=== PATIENT | female | born 1985 | race Caucasian/White ===

== ENCOUNTER 2018-09-04 13:40 | Inpatient (IN) | payer BC ==
[~2018-09-04] VITALS: Ht 185.4 cm; Wt 0.0 kg
[~2018-09-04 13:40] MED LIST: ACEBUTCAFT PO; APRI1 EACH PO; AZIT250 PO; BC PILLS; BCP'S; CEPH500 PO; CETI10 PO; CLIN300 PO; CLOB.05TO TOP; CRUTCH4 USE; CYCL10 PO; ERGO400 PO; FLUC150A PO; HYDACE10B PO; HYDACE5 PO; IBUP800; KETO10 PO; KETO15TC TOP; NAPR500 PO; NITR100CA; OTC ALLERGY MEDS PRN; OXYACE5T PO; POLY500; PROACE100; PROACE100 PO; PROM25 PO; RXOXYACE PO; TERB250 PO; TOPI25 PO; [UNRECOGNIZED DRUG - OTHER]; [UNRECOGNIZED DRUG - OTHER]; [UNRECOGNIZED DRUG - OTHER]; [UNRECOGNIZED DRUG - REMARK]
[2018-09-07 11:41] LABS: BASOPHILS ABSOLUTE AUTO 0.02 K/mm3 (0.00-0.23); BASOPHILS PERCENT AUTO 0 % (0-2); EOSINOPHILS PERCENT AUTO 1 % (0-6); Hematocrit 40.6 % (33.0-51.0); Hemoglobin 13.5 g/dL (11.5-16.0); IMMATURE GRAN ABSOLUTE AUTO 0.02 K/mm3 (0.00-0.10); IMMATURE GRAN PERCENT AUTO 0 % (0-1); LYMPHOCYTES ABSOLUTE AUTO 2.03 K/mm3 (0.84-5.20); LYMPHOCYTES PERCENT AUTO 25 % (21-46); MONOCYTES ABSOLUTE AUTO 0.47 K/mm3 (0.16-1.47); MONOCYTES PERCENT AUTO 6 % (4-13); Mean Corpuscular HGB 32.3 pg (26.0-34.0); Mean Corpuscular HGB Conc 33.3 g/dL (31.5-36.5); Mean Corpuscular Volume 97 fL (80-100); Mean Platelet Volume 10.7 fL (9.1-12.4); NEUTROPHILS ABSOLUTE AUTO 5.37 K/mm3 (1.96-9.15); NEUTROPHILS PERCENT AUTO 67 % (41-73); Platelet Count 195 K/mm3 (150-400); RDW Coefficient Variation 11.9 % (11.7-14.2); Red Blood Cell Count 4.18 M/mm3 (3.80-5.20); White Blood Cell Count 8.01 K/mm3 (4.00-11.30)
--- NOTE | 2018-09-08 07:53 | NUR ---
DR INIGUEZ HERE ULTRASOUND CONFIRMED BREECH POSITION
[2018-09-08 09:13] LABS: PCO2 Cord - Arterial 56.7 mmHg (40-50); PO2 Cord - Arterial 13.5 mmHg (16-20)
[2018-09-08 09:16] LABS: PCO2 Cord - Venous 43.3 mmHg (40-50); PO2 Cord - Venous 34.6 mmHg (28-32); pH Umbilical Cord - Venous 7.38 (7.26-7.35)
--- NOTE | 2018-09-08 09:26 | NUR ---
09/08/18 0926 Sravani Davidson 0857 DELIVERY VIABLE MALE APGARS 8/8 WEIGHT 9#1OZ, 4100GM, HEAD 15 INCHES, CHEST 14.5 INCHES, LENGTH 21 INCHES, UBILICAL CORD SEGMENT COLLECTED SENT WITH RT FOR CORD GASES, UMBILICAL CORD BLOOD COLLECTED AND GIVEN TO Sarah GIRON RN
--- NOTE | 2018-09-08 15:13 | NUR ---
PT STAND AT BEDSIDE; UP TO W/C TO NURSERY TO SEE .
--- NOTE | 2018-09-08 17:22 | NUR ---
PT STILL IN NURSERY, FOR THE SECOND TIME.
--- NOTE | 2018-09-08 18:23 | NUR ---
BACK TO ROOM TO REST
--- NOTE | 2018-09-08 23:41 | NUR ---
PAGE OUT PATIENT UP, AMBULATING, AND VOIDING WITHOUT DIFFICULTY
[2018-09-09 06:33] LABS: Hemoglobin 11.6 g/dL (11.5-16.0); Mean Corpuscular HGB 32.9 pg (26.0-34.0); Mean Corpuscular HGB Conc 34.1 g/dL (31.5-36.5); Mean Corpuscular Volume 96 fL (80-100); Mean Platelet Volume 10.9 fL (9.1-12.4); Platelet Count 175 K/mm3 (150-400); RDW Standard Deviation 42.2 fL (35.1-46.3); Red Blood Cell Count 3.53 M/mm3 (3.80-5.20); White Blood Cell Count 13.44 K/mm3 (4.00-11.30)
--- NOTE | 2018-09-09 09:11 | NUR ---
PT UP TO NURSERY. WAITING FOR STOMACH TO SETTLE A LITTLE MORE BEFORE TAKING PO PILLS
[2018-09-10 06:17] LABS: Hematocrit 30.9 % (33.0-51.0); Hemoglobin 10.1 g/dL (11.5-16.0); Mean Corpuscular HGB 32.4 pg (26.0-34.0); Mean Corpuscular HGB Conc 32.7 g/dL (31.5-36.5); Mean Platelet Volume 10.9 fL (9.1-12.4); Platelet Count 156 K/mm3 (150-400); RDW Coefficient Variation 12.2 % (11.7-14.2); Red Blood Cell Count 3.12 M/mm3 (3.80-5.20); White Blood Cell Count 11.04 K/mm3 (4.00-11.30)
[2018-09-10 06:19] LABS: Mean Corpuscular Volume 99 fL (80-100)
--- NOTE | 2018-09-10 12:29 | NUR ---
MEDICATED WITH 1 PERCOCET FOR CRAMPING AND ADMONINAL DISCOMFORT PAIN LEVEL 6/10
--- NOTE | 2018-09-10 13:20 | NUR ---
DISCHARGE INSTRUCTIONS REVIEWED AND BRAVO. ALL QUESTIONS ANSWERED.
--- NOTE | 2018-09-10 15:25 | NUR ---
BANDS MATCHED. PT DISCHARGED TO HOME.
--- NOTE | 2018-09-10 16:38 | NUR ---
CONSULT. BABY HAD INITIAL LOW BLOOD SUGARS AND TACHYPNEA, AND FORMULA SUPPLEMENT WERE STARTED. MOM HAS SMALL CONICAL SHAPED BREASTS, WIDE SET. STATES HER MOM AND SISTERS HAVE HAD GOOD MILK SUPPLIES THOUGH. INSTRUCT TO START PUMPING FOR 10 MINUTES PC TO STIMULATE PRODUCTION. QUESTIONS ABOUT GALACTOGOGUES ANSWERED AND INFO GIVEN. NOT TO START YET THOUGH. INSTRUCT/DEMO POSITIONING TO HELP OBTAIN A DEEPER ASYMETRIC LATCH AND FURTHER WIDEN THE LATCH AND TO CONTINUE WITH THE 20CC SUPPLEMENT WITH FORMULA VIA SYRINGE/FEEDING TUBE DURING BF, QF. MILK STARTS TO COME IN, USE EBM RATHER THAN FORMULA, AND WHEN SHE CAN PUMP 1 OZ FROM EACH BREAST, STOP SNS AND SOLELY BF, AND DECREASE PUMPING TO 1-2X/DAY. INSTRUCT IN FIRST WEEK CHANGES TO EXPECT WITH BABY AND WITH FEEDINGS AND REFERRED TO BF [facility] AND PAGE 18 OF BF [employer] FOR PHOTOS AND INFORMATION. LOVING WITH BABY.
== END 2018-09-10 15:25 | disposition home or self-care (01) | DRG 788 ==
LOC: BC 09-08 06:55
PROVIDERS: Advanced Practice Midwife; ADMIT Obstetrics & Gynecology
PROC: 10D00Z1 Extraction of Products of Conception, Low, Open Approach (ICD-10-PCS; principal; 2018-09-08 08:30)
DX: O32.1XX0 Maternal care for breech presentation, not applicable or unspecified (principal); O36.63X0 Maternal care for excessive fetal growth, third trimester, not applicable or unspecified; O16.4 Unspecified maternal hypertension, complicating childbirth; Z3A.39 39 weeks gestation of pregnancy; Z37.0 Single live birth; Z88.1 Allergy status to other antibiotic agents; Z88.5 Allergy status to narcotic agent; Z88.7 Allergy status to serum and vaccine
CPT/HCPCS: 36415; 82803; 85025; 85027; 86850; 86900; 86901; J0690; J1885; J2405; J2590; J2765; J3010; J7120

== ENCOUNTER → 2022-02-14 | Outpatient (CLI) | payer OTHER | END | disposition home or self-care (01) | LOC: LAB 19:12 → LAB SHORT 19:12 | DX: L03.011 Cellulitis of right finger (principal) | CPT/HCPCS: 87070; 87077; 87147; 87186; 87205 ==

== ENCOUNTER → 2022-09-19 | Outpatient (CLI) | payer OTHER ==
[2022-09-23 14:10] LABS: HPV 16 Negative (Negative); HPV 18 Negative (Negative); HPV OTHER HR TYPES Negative (Negative)
== END ==
LOC: LAB 13:45 → LAB SHORT 13:45
PROVIDERS: Nurse Practitioner Family
DX: Z12.4 Encounter for screening for malignant neoplasm of cervix (principal)
CPT/HCPCS: 87624; 88175

== ENCOUNTER → 2024-01-02 | Outpatient (CLI) | payer OTHER | END | disposition home or self-care (01) | LOC: LAB 17:55 → LAB SHORT 17:55 | DX: O09.90 Supervision of high risk pregnancy, unspecified, unspecified trimester (principal) | CPT/HCPCS: 87081; 87150 ==

== ENCOUNTER → 2025-04-27 | Outpatient (CLI) | payer OTHER ==
[~2025-04-27] MED LIST changes: +CEFP200 PO; +PRENATAL TABLE1 EAC2 PO
== END ==
LOC: LAB 13:42 → LAB SHORT 13:42
DX: L92.0 Granuloma annulare (principal)
CPT/HCPCS: 88305; 88312; 88313